=== PATIENT | female | born 2005 | race Caucasian/White ===

== ENCOUNTER 2024-07-15 01:09 | Emergency (ER) | payer SELFPAY ==
[~2024-07-15] VITALS: Ht 160 cm; Wt 63.0 kg
[2024-07-15 01:28] VITALS: BP 113/60; PULSE 72; RESP 18; TEMP 97.4; O2SAT 95
[2024-07-15] MEDS: ONDANSETRON 4 MG/2 ML VIAL IVP ONE (01:43)
[2024-07-15] MEDS: NACL 0.9% 1,000 ML IV ONE (01:44)
[2024-07-15 02:05] LABS: BASOPHILS % (AUTO) 0.5 % (0.0-2.0); EOSINOPHILS % (AUTO) 0.6 % (0.0-4.0); HEMATOCRIT 32.7 % (36-48); LYMPHOCYTES % (AUTO) 27.2 % (20.5-51.1); MEAN CORPUSCULAR HEMOGLOBIN 30 pg (27-31); MEAN CORPUSCULAR HGB CONC 34 g/dL (33-37); MEAN CORPUSCULAR VOLUME 88.2 fL (80-94); MONOCYTES # (AUTO) 0.3 K/uL (0.8-1.0); MONOCYTES % (AUTO) 4.2 % (1.7-9.3); NEUTROPHILS # (AUTO) 4.9 K/uL (1.8-7.7); NEUTROPHILS % (AUTO) 67.5 % (42.2-75.2); PLATELET COUNT (AUTO) 235 K/uL (140-450); RED BLOOD CELL COUNT(AUTO) 3.71 MIL/uL (4.20-5.40); RED CELL DISTRIBUTION WIDTH 12.9 % (11.6-13.7); WHITE BLOOD COUNT (AUTO) 7.3 K/uL (4.5-11.0)
[2024-07-15 02:19] LABS: ANION GAP 13.6 (8-16); CALCIUM 8.2 mg/dL (8.5-10.1); CREATININE 0.8 mg/dL (0.6-1.3)
[2024-07-15 02:27] LABS: POTASSIUM 2.6 mmol/L (3.5-5.1)
[2024-07-15] MEDS: KCL 20 MEQ IN 100 mL PREMIX 100 ML IV ONE (03:21)
[2024-07-15 04:25] VITALS: BP 133/81; PULSE 71; RESP 16; O2SAT 98
== END 2024-07-15 04:35 | disposition home or self-care (01) ==
LOC: MED 01:09
DX: F10.129 Alcohol abuse with intoxication, unspecified (principal); Y90.8 Blood alcohol level of 240 mg/100 ml or more
CPT/HCPCS: 36415; 80048; 85025; 96361; 96365; 96366; 96375; 99284; G0482; J2405; J3480; J7030